=== PATIENT | male | born 1985 | race Caucasian/White ===

== ENCOUNTER 2020-11-19 15:14 | Inpatient (IN) | payer OTHER ==
[~2020-11-19] VITALS: Ht 185.4 cm; Wt 88.0 kg
[2020-11-19 15:21] VITALS: BP 142/74
[2020-11-19 17:24] LABS: BASO # 0.1 10*3/uL (0.0-0.1); BASO % 0.5 % (0.0-1.0); EOS # 1.5 10*3/uL (0.0-0.4); EOS % 12.4 % (1.0-4.0); HEMATOCRIT 41.4 % (42.0-52.0); LYMPH % 24.2 % (27.0-41.0); MEAN CELL VOLUME 92.4 fl (80.0-94.0); MEAN CORPUSCULAR HGB 31.7 pg (27.0-31.0); MEAN CORPUSCULAR HGB CONC 34.3 g/dl (33.0-37.0); MEAN PLATELET VOLUME 9.7 fl (9.6-12.3); MONO # 1.1 10*3/uL (0.1-1.0); MONO % 8.8 % (3.0-9.0); NEUT # 6.7 10*3/uL (2.3-7.9); NEUT % 53.9 % (47.0-73.0); PLATELET COUNT AUTOMATED 195 10*3/uL (130-400); RED BLOOD COUNT 4.48 10*6/uL (4.50-5.90); WHITE BLOOD COUNT 12.4 10*3/uL (4.8-10.8)
[2020-11-19 17:42] LABS: ALBUMIN 3.3 gm/dl (3.1-4.5); ALKALINE PHOSPHATASE 76 U/L (45-117); BUN 13 mg/dl (7-24); CHLORIDE 99 mmol/L (98-107); POTASSIUM 3.6 mmol/L (3.5-5.1); SGOT/AST 10 IU/L (3-35); SGPT/ALT 24 U/L (12-78); SODIUM 135 mmol/L (136-145); TOTAL PROTEIN 7.1 gm/dL (6.4-8.2); URIC ACID 6.1 mg/dL (3.5-7.2)
[2020-11-19 19:39] LABS: URINE AMPHETAMINES < 1000 (1000ng/ml); URINE BARBITURATES < 200 (200ng/ml); URINE BENZODIAZEPINES < 200 (200ng/ml); URINE CANNABINOIDS (THC) < 50 (50ng/ml); URINE COCAINE > 300 (300ng/ml); URINE METHADONE < 300 (300ng/ml); URINE OPIATES > 300 (300ng/ml)
[2020-11-19 19:43] LABS: URINE PHENCYCLIDINE < 25 (25ng/ml)
[2020-11-19 21:01] VITALS: BP 115/71
[2020-11-19 22:45] VITALS: BP 134/68
[2020-11-20 06:06] LABS: BUN 13 mg/dl (7-24); CHLORIDE 105 mmol/L (98-107); CREATININE 1.12 mg/dL (0.70-1.30); SODIUM 139 mmol/L (136-145)
[2020-11-20 06:12] LABS: BASO % 0.4 % (0.0-1.0); EOS # 1.5 10*3/uL (0.0-0.4); EOS % 16.6 % (1.0-4.0); HEMATOCRIT 40.3 % (42.0-52.0); LYMPH # 2.6 10*3/uL (1.3-4.4); LYMPH % 29.4 % (27.0-41.0); MEAN CELL VOLUME 92.6 fl (80.0-94.0); MEAN CORPUSCULAR HGB 31.5 pg (27.0-31.0); MEAN PLATELET VOLUME 10.1 fl (9.6-12.3); MONO # 0.8 10*3/uL (0.1-1.0); MONO % 9.3 % (3.0-9.0); NEUT # 3.9 10*3/uL (2.3-7.9); NEUT % 44.1 % (47.0-73.0); PLATELET COUNT AUTOMATED 192 10*3/uL (130-400); RED BLOOD COUNT 4.35 10*6/uL (4.50-5.90); RED CELL DISTRI WIDTH 11.9 % (0-14.5)
[2020-11-20 08:00] VITALS: BP 129/77
[2020-11-20] MEDS ORDERED: INDOMETHACIN50 MG PO (14:39)
== END 2020-11-20 17:28 | DRG 720 ==
LOC: ED 15:14 → EDHOLD 18:54 → 5E 18:54
PROVIDERS: Internal Medicine; Nurse Practitioner; ADMIT Internal Medicine; ATTEND Internal Medicine
DX: A41.9 Sepsis, unspecified organism (principal); L03.116 Cellulitis of left lower limb; F14.10 Cocaine abuse, uncomplicated; F17.210 Nicotine dependence, cigarettes, uncomplicated; F10.10 Alcohol abuse, uncomplicated; E44.0 Moderate protein-calorie malnutrition; M10.9 Gout, unspecified; R73.9 Hyperglycemia, unspecified; Z82.3 Family history of stroke; Z79.899 Other long term (current) drug therapy; Z71.6 Tobacco abuse counseling